=== PATIENT | male | born 1960 ===

== ENCOUNTER 2024-08-31 05:58 | Day surgery (SDC) | payer OTHER ==
[2024-08-19 12:33] VITALS: BP 122/73
[~2024-08-31] VITALS: Ht 182.9 cm; Wt 134.7 kg
[~2024-08-31 05:58] MED LIST: ABATINEX680 MG PO; AVAPRO150 MG PO
[2024-08-31] MEDS ORDERED: HEMOSTATIC MATRIX 1 KIT KIT TOP ONE ×2 (07:15→08:15)
[2024-08-31] MEDS ORDERED: METRONIDAZOLE/SODIUM CHLORIDE 500 MG/100 ML PIGGYBACK IV ONE ×3 (07:15→08:15)
[2024-08-31] MEDS ORDERED: POVIDONE-IODINE 118 ML BOTT TOP ONE ×2 (07:15→08:15)
[2024-08-31] MEDS ORDERED: BUPIVACAINE HCL/MPF 0.5% 30ML VIAL ONE (07:15)
[2024-08-31] MEDS ORDERED: DIBUCAINE 30 GM TUBE ONE (07:15)
[2024-08-31] MEDS ORDERED: CEFTRIAXONE SODIUM 2,000 MG VIAL ONE ×2 (07:15→07:24)
[2024-08-31] MEDS ORDERED: BUPIVACAINE LIPOSOME/PF 266 MG/20 ML VIAL IJ ONE ×2 (07:18→08:15)
[2024-08-31] MEDS ORDERED: BUPIVACAINE HCL 30 ML VIAL IJ ONE (08:15)
[2024-08-31] MEDS ORDERED: DIBUCAINE 30 GM TUBE RECTAL ONE (08:15)
[2024-08-31] MEDS ORDERED: CEFTRIAXONE SODIUM 2,000 MG VIAL IV ONE (08:15)
[2024-08-31] MEDS ORDERED: CELECOXIB200 MG PO (09:40)
[2024-08-31] MEDS ORDERED: INTESTINEX680 M1 PO (09:40)
[2024-08-31] MEDS ORDERED: PERCOCET 5-3251 EACH PO (09:41)
[2024-08-31] MEDS ORDERED: NEURONTIN300 MG PO (09:42)
== END 2024-08-31 13:50 | disposition home or self-care (01) ==
LOC: CIR.AMB 05:58
PROVIDERS: ATTEND Surgery
DX: K64.2 Third degree hemorrhoids (principal); K64.4 Residual hemorrhoidal skin tags